=== PATIENT | female | born 1975 | race Caucasian/White ===

== ENCOUNTER 2020-12-28 11:42 | Emergency (ER) | payer SELFPAY ==
[~2020-12-28] VITALS: Ht 157.5 cm; Wt 59.0 kg
--- NOTE | 2020-12-28 11:50 | NUR ---
Patient to ER bed 6 to gown for evaluation. Side rails up. Report given to Hitesh PENALOZA.
[2020-12-28 12:01] VITALS: BP_SYST 118
--- NOTE | 2020-12-28 12:04 | NUR ---
X-RAYS COMPLETED, TOLERATED WELL, REPOSITIONED FOR COMFORT
--- NOTE | 2020-12-28 12:11 | NUR ---
DR PATE IN TO ASSESS
--- NOTE | 2020-12-28 12:16 | NUR ---
RECEIVED IN C-COLLAR. ODOR OF ETOH, SLOW TO RESPOND WITH PAIN. SKIN WARM AND DRY. RESP UNLABORED, NO SIGNS OF HEAD INJURY
--- NOTE | 2020-12-28 12:22 | NUR ---
Note jose raul in ED - 12/28/20 at 1234 by SDEDFS ULTRASOUND COMPLETED, PT CALM, RESP UNLABORED, NO DISTRESS
[2020-12-28 12:55] LABS: EOSINOPHILS # (AUTO) 0.2 K/uL (0.0-0.4); EOSINOPHILS % (AUTO) 7.6 % (0.0-4.0); HEMATOCRIT 35.4 % (36-48); HEMOGLOBIN 11.9 g/dL (12.0-16.0); LYMPHOCYTES # (AUTO) 1.3 K/uL (1.0-5.5); LYMPHOCYTES % (AUTO) 42.5 % (20.5-51.5); MEAN CORPUSCULAR HEMOGLOBIN 31 pg (27-31); MEAN CORPUSCULAR HGB CONC 34 % (32-36); MEAN CORPUSCULAR VOLUME 92 fL (79.0-98.0); MONOCYTES # (AUTO) 0.4 K/uL (0.0-1.0); PLATELET COUNT (AUTO) 199 K/uL (130-430); RED BLOOD CELL COUNT(AUTO) 3.86 MIL/uL (4.2-6.2)
[2020-12-28 13:04] LABS: NEUTROPHILS # (AUTO) 1.1 K/uL (1.8-7.7); NEUTROPHILS % (AUTO) 36.9 % (40.0-70.0)
[2020-12-28 13:07] LABS: PROTHROMBIN TIME 10.6 SECS (9.5-12.5)
[2020-12-28 13:30] LABS: ANION GAP 10 (5-15); CALCIUM 7.9 mg/dL (8.4-11.0); CHLORIDE 104 mmol/L (98-107); GLUCOSE 158 mg/dL (70-99); POTASSIUM 3.2 mmol/L (3.5-5.1); SODIUM SERUM 138 mmol/L (136-145); UREA NITROGEN, BLOOD 9 mg/dL (8-21)
[2020-12-28 13:36] LABS: GFR AFRICAN AMERICAN 173 mL/min (>90)
[2020-12-28 13:38] LABS: ALANINE AMINOTRANSFERASE 53 U/L (12-78); ALBUMIN 3.3 g/dL (3.4-4.8); AMYLASE 29 U/L (0-100); ASPARTATE AMINOTRANSFERASE 82 U/L (10-37); LIPASE 37 U/L (73-393); TOTAL BILIRUBIN 0.2 mg/dL (0.0-1.0)
[2020-12-28 13:49] LABS: ALCOHOL, BLOOD 405 mg/dL (<10)
[2020-12-28 13:59] LABS: ACETONE, SERUM NEGATIVE (NEGATIVE)
--- NOTE | 2020-12-28 14:16 | NUR ---
EROUSED WITH PAINFUL STIMULI. POSITIVE FOR ETOH >400. RESP UNLABORED
[2020-12-28] MEDS ORDERED: NACL 0.9% 1,000 ML IV ONE (14:45)
--- NOTE | 2020-12-28 15:05 | NUR ---
SITTING UP ALERT, CLEAR SPEECH, PULLED IV OUT STATES READY TO GO HOME, STEADY GAIT TO BATHROOM, NO DISTRESS
--- NOTE | 2020-12-28 15:25 | NUR ---
DR GONSALES AT BEDSIDE TALKING WITH PATIENT
[2020-12-28 15:51] VITALS: BP_SYST 125
--- NOTE | 2020-12-28 15:53 | NUR ---
Patient given written and verbal discharge instructions and verbalizes understanding. ER MD discussed with patient the results and treatment provided. Patient in stable condition. ID arm band removed. Patient educated on pain management and to follow up with PMD. Pain Scale 0/10 Opportunity for questions provided and answered. Medication side effect fact sheet provided.
--- NOTE | 2020-12-28 16:23 | NUR ---
PLACED BACK IN [facility], [facility] CALLED FOR TRANSPORT TO HOME
== END 2020-12-28 15:53 | disposition home or self-care (01) ==
LOC: SED 11:42
DX: F10.129 Alcohol abuse with intoxication, unspecified (principal); Y90.8 Blood alcohol level of 240 mg/100 ml or more
CPT/HCPCS: 36415; 80053; 81002; 82009; 82140; 82150; 83605; 83690; 84484; 85025; 85610; 85730; 99283; G0482